=== PATIENT | male | born 1995 | race Caucasian/White ===

== ENCOUNTER 2019-11-29 13:14 | Emergency (ER) | payer OTHER ==
[~2019-11-29] VITALS: Ht 177.8 cm; Wt 83.9 kg
[~2019-11-29 13:14] MED LIST: CYMBALTA60 MG PO; FLEXERIL PO; IBUPROFEN 200200 M1 PO; LEVOTHYROXINE0.05 MG PO; NAPROSYN500 MG PO; NORCO 5-325 TA1 EACH PO; NORVASC5 MG PO; SERTRALINE HCL50 MG PO; UNICOMPLEX M TA1 TA1 PO; VYVANSE50 MG PO
[2019-11-29] MEDS ORDERED: PREDNISONE 10 M10 MG PO (14:27)
[2019-11-29] MEDS ORDERED: FLEXERIL PO (14:27)
[2019-11-29 14:38] VITALS: BP 145/89
== END 2019-11-29 14:38 | disposition home or self-care (01) ==
LOC: M.ERS 13:14
DX: M54.10 Radiculopathy, site unspecified (principal); M62.838 Other muscle spasm; E03.9 Hypothyroidism, unspecified; I10 Essential (primary) hypertension; Z79.899 Other long term (current) drug therapy; Z88.8 Allergy status to other drugs, medicaments and biological substances

== ENCOUNTER 2020-02-15 15:15 | Emergency (ER) | payer OTHER ==
[~2020-02-15] VITALS: Ht 180.3 cm; Wt 86.2 kg
[~2020-02-15 15:15] MED LIST changes: +ALPRAZOLAM 0.50.5 M1 PO; +NORCO 5-325 TA1 EAC2 PO; +PREDNISONE 10 M10 MG PO; +ZOLPIDEM TARTRA10 MG PO
[2020-02-15] MEDS ORDERED: BLOOD PRESSURE MED (15:34)
[2020-02-15] MEDS ORDERED: KEFLEX500 M1 PO (16:24)
[2020-02-15] MEDS ORDERED: NORCO 5-325 TA1 EAC2 PO (16:24)
[2020-02-15 16:40] VITALS: BP 130/75
== END 2020-02-15 16:40 | disposition home or self-care (01) ==
LOC: M.ERS 15:15
DX: S61.211A Laceration without foreign body of left index finger without damage to nail, initial encounter (principal); I10 Essential (primary) hypertension; E03.9 Hypothyroidism, unspecified; Z79.899 Other long term (current) drug therapy; Z88.8 Allergy status to other drugs, medicaments and biological substances; W31.89XA Contact with other specified machinery, initial encounter; Y93.89 Activity, other specified; Y92.89 Other specified places as the place of occurrence of the external cause; Y99.8 Other external cause status

== ENCOUNTER 2020-03-23 17:56 | Emergency (ER) | payer OTHER ==
[~2020-03-23] VITALS: Ht 182.9 cm; Wt 83.9 kg
[~2020-03-23 17:56] MED LIST changes: +BLOOD PRESSURE MED; +KEFLEX500 M1 PO
[2020-03-23] MEDS ORDERED: AMBIEN5 MG PO (18:01)
[2020-03-23 18:43] LABS: ABSOLUTE EOSINOPHILS 0.1 thou/uL (0.0-0.7); ABSOLUTE LYMPHOCYTES 1.6 thou/uL (0.8-5.3); ABSOLUTE MONOCYTES 0.6 thou/uL (0.0-1.2); ABSOLUTE NEUTROPHILS 5.3 thou/uL (1.6-8.1); BASOPHILS 0.3 %; EOSINOPHILS 0.9 %; HEMATOCRIT 43.9 % (42.0-52.0); HEMOGLOBIN 15.1 gm/dL (14.0-18.0); LYMPHOCYTES 21.1 %; MCH 28.8 pg (26.0-34.0); MCHC 34.3 g/dL (28.0-37.0); MCV 83.9 fL (80.0-100.0); MONOCYTES 7.5 %; MPV 8.5 fl. (7.2-11.1); NUCLEATED RBCS 0 /100WBC; PLATELET COUNT* 246 thou/uL (150-400); POLYS 70.2 %; RBC 5.23 mil/uL (4.50-6.00); RDW-CV 12.3 % (10.5-14.5); WBC 7.6 thou/uL (4.0-11.0)
[2020-03-23 18:46] LABS: CALCIUM 9.1 mg/dL (8.5-10.1); CREATININE 1.3 mg/dL (0.6-1.3); POTASSIUM 3.7 mmol/L (3.5-5.1)
[2020-03-23 18:50] LABS: ALBUMIN 4.6 g/dL (3.4-5.0); DIRECT BILIRUBIN 0.1 mg/dL (<0.1-0.3); TOTAL BILIRUBIN 0.4 mg/dL (<0.1-1.0); TOTAL PROTEIN 7.9 g/dL (6.4-8.2)
[2020-03-23 19:35] LABS: URINE BILIRUBIN NEGATIVE (Negative); URINE BLOOD TRACE (Negative); URINE CLARITY CLEAR; URINE COLOR YELLOW; URINE GLUCOSE-RANDOM NEGATIVE (Negative); URINE KETONES NEGATIVE (Negative); URINE LEUKOCYTES NEGATIVE (Negative); URINE NITRITE NEGATIVE (Negative); URINE PROTEIN 1+ (Negative); URINE UROBILINOGEN 0.2 E.U./dl (0.2-1.0)
[2020-03-23 19:43] LABS: AMP/METHAMP POSITIVE (Negative); BARBITURATES Negative (Negative); BENZODIAZEPINES Negative (Negative); COCAINE Negative (Negative); METHADONE Negative (Negative); OPIATES POSITIVE (Negative); PCP Negative (Negative); THC POSITIVE (Negative)
[2020-03-23 20:15] VITALS: BP 139/60
--- NOTE | 2020-03-24 08:55 | EKG ---
[place] [address] ELECTROCARDIOGRAM REPORT Name: LOLIS GIVENS II Room: [facility]#: [id number] Admission: 03/23/20 Attend Phys: Discharge: 03/23/20 Date of : [birth year] Date of Service: 03/23/20 184 Report #: [id number] THIS REPORT FOR: //name// [facility] ED Test Date: 2020-03-23 Test Time: 18:48:42 Pat Name: LOLIS GIVENS Department: Room: Gender: Night Clerk Auditor: [facility] : 1995 Requested By: Davis Hurd Order Number: [id number] MD: Reese Nevarez Measurements Intervals [place] Rate: 85 P: 41 ND: 146 QRS: -5 QRSD: 108 T: 24 QT: 392 QTc: 467 Interpretive Statements Sinus rhythm RSR' in V1 or V2, right VCD or RVH Compared to ECG 08/03/2008 10:02:20 RSR' in V1 or V2 now present Electronically Signed On 03-24-2020 8:55:05 JOURNALISM INTERN by Reese Nevarez [email or web address] <ELECTRONICALLY SIGNED> By: Reese Nevarez MD, [facility] 03/24/20 0855 184 1848 Reese Nevarez MD, [facility] /EPI
== END 2020-03-23 20:18 | disposition home or self-care (01) ==
LOC: M.ERS 17:56
PROVIDERS: Emergency Medicine
DX: R56.9 Unspecified convulsions (principal); F12.90 Cannabis use, unspecified, uncomplicated; I10 Essential (primary) hypertension; E03.9 Hypothyroidism, unspecified; Z88.6 Allergy status to analgesic agent; Z79.899 Other long term (current) drug therapy